=== PATIENT | female | born 1985 | race Two or more races ===

== ENCOUNTER 2020-02-26 00:41 | Inpatient (IN) | payer MEDICAID, OTHER ==
[2020-02-26] MEDS: Lactated Ringers 1,000 ML IV SCH ×2 (02:00→03:01)
[2020-02-26] MEDS ORDERED: Metoclopramide 10 MG/2 ML SDV IVPUSH ONE (02:03)
[2020-02-26] MEDS ORDERED: Sodium Chloride 0.9% 10 ML Syringe FLUSH PRN (02:03)
[2020-02-26] MEDS ORDERED: ceFAZolin 2 GM in Premix Bag 1 BAG IV ONE (02:03)
[2020-02-26] MEDS ORDERED: Citric Acid/Sodium Citrate Solution 30 ML Cup PO ONE (02:03)
[2020-02-26] MEDS ORDERED: Oxytocin/Lactated Ringers 10 UNIT/1,000 ML BAG IV SCH ×2 (02:15→10:23)
[2020-02-26] MEDS ORDERED: Azithromycin 500 MG in Sodium Chloride 0.9% 250 ML IV ONE (06:31)
[2020-02-26] MEDS ORDERED: ceFAZolin 1 GM in Premix Bag 1 BAG IV ONE (06:59)
--- NOTE | 2020-02-26 07:03 | PCM.LDHP ---
L&D History of Present Illness - General Date of Service: 02/26/20 Admit Problem/Dx: Patient Status Order with Admit Dx/Problem 02/26/20 01:15 Patient Status [ADT] Routine 02/26/20 02:03 Patient Status [ADT] Routine Admission Diagnosis/Problem Admission Diagnosis/Problem Source of Information: Patient History Limitations: Reports: No Limitations - History of Present Illness Introduction:: Basilia Tony is a 34-year-old -0-1-4 at 39 weeks 1 day (YUMIKO 03/03/2020) by LMP consistent with 30-week ultrasound who presents for evaluation of possible rupture of membranes. She reports that in the evening of 02/25/2020 around 10:30 PM she had several small gushes of fluid with continuous leaking of fluid down her leg. She denies any bleeding at that time. She had called into the hospital and they recommended that she come in for evaluation. She was not having any contractions or cramping at that time. She reports good movement. Timing/Duration: Reports: sudden onset (With several small gushes of fluid), constant/continuous (Leaking of fluid) Associated Symptoms: Reports: vaginal fluid, mild amount. Denies: vaginal bleeding, vaginal discharge Present Illness Comments:: Basilia Tony is a 34-year-old -0-1-4 at 39 weeks 1 day (YUMIKO 03/03/2020) who presents with spontaneous rupture membranes. She has had limited care and was late for care starting with her first ultrasound in September 2019. We do not have results of that ultrasound but she had a full anatomy ultrasound done when she was 30 weeks gestational age that was overall normal with limited spine views. She had several visits with her PCP for the in November and December and began care with myself for the last 4 visits starting on 01/29/2020. This has been overall uncomplicated. She has used marijuana during the to help with some of her nausea and vomiting that was occurring even towards the end of the . She states that she had stopped around the time of her first visit with myself. She has had regular visits since she established care with myself. Her is complicated by: * History of section x3 with plan for repeat section * Hepatitis C positive on initial exams * Obesity with BMI of 37.6 * Marijuana use in * Gastroesophageal reflux disease in and has been using baking soda to help with her symptoms. Patient was given a prescription for Prilosec but she did not start taking the medication * Advanced maternal age [employer] history -0-1-4 G1: 11/12/1999, gestational age 40 weeks, 7 pounds 9 ounces, male , vaginal delivery, from SIDS G2: 01/03/2005, gestational age 40 weeks, 8 pounds 13 ounces, male infant, vaginal delivery, started as twin with loss of one twin early in G3: 04/12/2007, gestational age 40 weeks, 8 pounds 0 ounces, female , primary section for breech presentation G4: 06/11/2009, gestational age 39 weeks, 8 pounds 0 ounces, male , repeat section for history of G5: 07/19/2013, 8 pounds 0 ounces, gestational age 39 weeks, female , repeat section for history of x2 G6: Current labs Blood type: O+ Antibody screen: Negative Urine culture: Negative, mixed shen suggestive of contamination Rubella status: Immune Hepatitis C: Positive Hepatitis B surface antigen: Negative RPR: Negative HIV: Negative Gonorrhea: Negative Chlamydia: Negative Anatomy ultrasound: Grossly normal anatomy ultrasound with spine views limited, 56th percentile, anterior placenta, no previa Second trimester hematocrit/hemoglobin: 36.3%/12.6 on 12/15/2019 Platelets: 289 on 12/15/2019 GBS status: Negative - Related Data Allergies/Adverse Reactions: Allergies Allergy/AdvReac Type Severity Reaction Status Date / Time No Known Allergies Allergy Verified 02/26/20 06:28 Past Medical History HEENT History: Reports: None Cardiovascular History: Reports: None Gastrointestinal History: Reports: GERD Genitourinary History: Reports: STD Other Genitourinary History: Hep C+, denies hx iv drug use [employer] History: Reports: : 6 Para: 5 Musculoskeletal History: Reports: None Neurological History: Reports: None Psychiatric History: Reports: Anxiety Endocrine/Metabolic History: Reports: Obesity/BMI 30+ Hematologic History: Reports: None Immunologic History: Reports: None Oncologic (Cancer) History: Reports: None Dermatologic History: Reports: None - Infectious Disease History Infectious Disease History: Reports: Hepatitis C, Human Papilloma Virus (HPV) - Past Surgical History Head Surgeries/Procedures: Reports: None HEENT Surgical History: Reports: None Cardiovascular Surgical History: Reports: None GI Surgical History: Reports: None Female Surgical History: Reports: Section (x3) Endocrine Surgical History: Reports: None Neurological Surgical History: Reports: None Musculoskeletal Surgical History: Reports: None Oncologic Surgical History: Reports: None Dermatological Surgical History: Reports: None Social & Family History - Family History Family Medical History: Noncontributory - Tobacco Use Smoking Status *Q: Never Smoker Second Hand Smoke Exposure: No - Tobacco Core Measures Tobacco Use/Smoking Within Last 30 Days: No Smokeless Tobacco Use in Last 30 Days: No - Caffeine Use Caffeine Use: Reports: Coffee, Soda - Alcohol Use Alcohol Use History: No - Recreational Drug Use Recreational Drug Use: Yes Drug Use in Last 12 Months: Yes Recreational Drug Type: Reports: Marijuana/Hashish Recreational Drug Last Use: 1 week ago - Living Situation & Occupation Living situation: Reports: Single, with Family H&P Review of Systems - Review of Systems: Review Of Systems: See Below General: Denies: Fever, Chills, Malaise, Weakness, Fatigue HEENT: Denies: Headaches, Rhinitis, Post Nasal Drip, Sinus Congestion, Sore Throat Pulmonary: Denies: Shortness of Breath, Wheezing, Pleuritic Chest Pain, Cough Cardiovascular: Denies: Chest Pain, Palpitations Gastrointestinal: Denies: Abdominal Pain, Constipation, Diarrhea, Nausea, Vomiting Genitourinary: Denies: Dysuria, Frequency, Burning, Pain, Urgency Skin: Reports: Rash (on the back of her hands that comes during summer) Psychiatric: Reports: Anxiety. Denies: Depression Neurological: Denies: Dizziness Hematologic/Lymphatic: Denies: Anemia L&D Exam - Exam Exam: See Below - Vital Signs Vital Signs: Last Vital Signs Temp 36.2 C 02/26/20 01:15 Pulse 74 02/26/20 01:15 Resp 15 02/26/20 01:15 BP 129/86 02/26/20 01:15 Pulse Ox 98 02/26/20 01:15 Weight: 119.748 kg - OB Specific Contraction Duration (sec): 45-60 Contraction Frequency (min): 3-4 Contraction Intensity: Mild to Moderate Movement: Active Heart Tones: Present Heart Tones per Min: 120 (+15 x 15 accelerations, no decelerations) Heart Rate (FHR) Variability: Moderate (6-25 bmp) Presentation: Vertex - Montanez Score Montanez Score Cervix Position: Posterior Montanez Score Consistency: Soft Montanez Score Effacement: >80% (80%) Montanez Score Dilation: 3-4 cm (4 cm) Montanez Score 's Station: -3 (-4) Montanez Score Total: 7 - Exam General: Alert, Oriented HEENT: Conjunctiva Clear, EOMI Neck: Supple, Trachea Midline Lungs: Clear to Auscultation, Normal Respiratory Effort Cardiovascular: Regular Rate, Regular Rhythm GI/Abdominal Exam: Soft, Non-Tender, No Distention. No: Guarding, Rigid, Rebound Genitourinary: Normal external exam Skin: Warm, Dry, Intact Psychiatric: Alert, Normal Affect, Normal Mood - Patient Data Lab Results Last 24 hrs: Laboratory Results - last 24 hr 02/26/20 02/26/20 02/26/20 Range/Units 01:26 02:25 02:25 WBC 6.45 (3.98-10.04) K/mm3 RBC 3.81 L (3.98-5.22) M/mm3 Hgb 10.3 L (11.2-15.7) gm/dl Hct 32.3 L (34.1-44.9) % MCV 84.8 (79.4-94.8) fl MCH 27.0 (25.6-32.2) pg MCHC 31.9 L (32.2-35.5) g/dl RDW Std Deviation 39.2 (36.4-46.3) fL Plt Count 269 (182-369) K/mm3 MPV 10.8 (9.4-12.3) fl Neut % (Auto) 62.3 (34.0-71.1) % Lymph % (Auto) 29.0 (19.3-51.7) % [place] % (Auto) 7.3 (4.7-12.5) % Eos % (Auto) 0.6 L (0.7-5.8) Baso % (Auto) 0.5 (0.1-1.2) % Neut # (Auto) 4.02 (1.56-6.13) K/mm3 Lymph # (Auto) 1.87 (1.18-3.74) K/mm3 [place] # (Auto) 0.47 H (0.24-0.36) K/mm3 Eos # (Auto) 0.04 (0.04-0.36) K/mm3 Baso # (Auto) 0.03 (0.01-0.08) K/mm3 Membrane Rupture Positive H Urine Opiates Screen (VNHYKQ=553) Ur Buprenorphine Scrn (CUTOFF=10) Ur Oxycodone Screen (XZH7BE=371) Urine Methadone Screen (DXUDMM=195) Ur Propoxyphene Screen (YGMEHD=308) Ur Barbiturates Screen (QJUKJI=450) Ur Tricyclics Screen (PTEGRJ=631) Ur Phencyclidine Scrn (CUTOFF=25) Ur Amphetamine Screen (QHVUNU=340) U Methamphetamines Scrn (LEGHEZ=571) U Benzodiazepines Scrn (PPZAWU=483) U Cocaine Metab Screen (MNDFRS=605) U Marijuana (THC) Screen (CUTOFF=50) SARS Virus RNA (PCR) (NEGATIVE) Blood Type O POSITIVE Gel Antibody Screen Negative 02/26/20 02/26/20 Range/Units 02:45 02:50 WBC (3.98-10.04) K/mm3 RBC (3.98-5.22) M/mm3 Hgb (11.2-15.7) gm/dl Hct (34.1-44.9) % MCV (79.4-94.8) fl MCH (25.6-32.2) pg MCHC (32.2-35.5) g/dl RDW Std Deviation (36.4-46.3) fL Plt Count (182-369) K/mm3 MPV (9.4-12.3) fl Neut % (Auto) (34.0-71.1) % Lymph % (Auto) (19.3-51.7) % [place] % (Auto) (4.7-12.5) % Eos % (Auto) (0.7-5.8) Baso % (Auto) (0.1-1.2) % Neut # (Auto) (1.56-6.13) K/mm3 Lymph # (Auto) (1.18-3.74) K/mm3 [place] # (Auto) (0.24-0.36) K/mm3 Eos # (Auto) (0.04-0.36) K/mm3 Baso # (Auto) (0.01-0.08) K/mm3 Membrane Rupture Urine Opiates Screen Negative (IRJMXP=239) Ur Buprenorphine Scrn Negative (CUTOFF=10) Ur Oxycodone Screen Negative (HQA1UT=299) Urine Methadone Screen Negative (HEEPZG=492) Ur Propoxyphene Screen Negative (WKIFUK=491) Ur Barbiturates Screen Negative (BMGWVH=764) Ur Tricyclics Screen Negative (DOZSUG=806) Ur Phencyclidine Scrn Negative (CUTOFF=25) Ur Amphetamine Screen Negative (JLKOJK=168) U Methamphetamines Scrn Negative (NZXTPD=739) U Benzodiazepines Scrn Negative (SCNZVO=760) U Cocaine Metab Screen Negative (KUYMQD=870) U Marijuana (THC) Screen Presumptive positive H (CUTOFF=50) SARS Virus RNA (PCR) Negative (NEGATIVE) Blood Type Gel Antibody Screen Result Diagrams: 02/26/20 02:25 - Problem List (1) 39 weeks gestation of SNOMED Code(s): 06663763 ICD Code: Z3A.39 - 39 WEEKS GESTATION OF Status: Acute Current Visit: Yes (2) History of delivery, currently SNOMED Code(s): 606091806, 048943917 ICD Code: O34.219 - MATERNAL CARE FOR UNSP TYPE SCAR FROM PREVIOUS DEL Status: Acute Current Visit: Yes (3) History of section SNOMED Code(s): 108907608 ICD Code: Z98.891 - HISTORY OF UTERINE SCAR FROM PREVIOUS SURGERY Status: Acute Current Visit: Yes (4) Hepatitis C SNOMED Code(s): 06712508 ICD Code: B19.20 - UNSPECIFIED VIRAL HEPATITIS C WITHOUT HEPATIC COMA Status: Acute Current Visit: Yes (5) Gastroesophageal reflux during in third trimester, antepartum SNOMED Code(s): 961306523 ICD Code: O99.613 - DISEASES OF THE DGSTV SYS COMP , THIRD TRIMESTER; K21.9 - GASTRO-ESOPHAGEAL REFLUX DISEASE WITHOUT ESOPHAGITIS Status: Acute Current Visit: Yes (6) Obesity (BMI 30-39.9) SNOMED Code(s): 429016412, 476941458 ICD Code: E66.9 - OBESITY, UNSPECIFIED Status: Acute Current Visit: Yes (7) Advanced maternal age in multigravida SNOMED Code(s): 623018241 ICD Code: O09.529 - SUPERVISION OF ELDERLY MULTIGRAVIDA, UNSPECIFIED TRIMESTER Status: Acute Current Visit: Yes Problem List Initiated/Reviewed/Updated: Yes Orders Last 24hrs: Active Orders 24 hr Category Date Time Status Patient Status [ADT] Routine ADT 02/26/20 02:03 Active Communication Order [RC] ROUTINE Care 02/26/20 02:03 Active Peripheral IV Care [RC] . DIRECTED Care 02/26/20 02:04 Active Procedure Site Prep Instruct [RC] ASDIRECTED Care 02/26/20 02:03 Active Verify Patient Consent Obtain [RC] PER UNIT ROUTINE Care 02/26/20 02:03 Active Vital Signs [RC] PFP Care 02/26/20 02:03 Active Vital Signs [RC] Q4HR Care 02/26/20 01:15 Active PATIENT RETYPE [BBK] Routine Lab 02/26/20 04:12 Ordered RAPID PLASMA REAGIN,RPR [CHEM] Routine Lab 02/26/20 02:25 Received Azithromycin [Zithromax] 500 mg Med 02/26/20 06:31 Active Sodium Chloride 0.9% [Normal Saline] 250 ml IV ONETIME Lactated Ringers [Ringers, Lactated] 1,000 ml Med 02/26/20 02:15 Active IV ASDIRECTED Oxytocin/Lactated Ringers [Pitocin in LR 10 Units/1,000 Med 02/26/20 02:15 Active ML] 10 unit in 1,000 ml IV ASDIRECTED Sodium Chloride 0.9% [Saline Flush] Med 02/26/20 02:03 Active 10 ml FLUSH ASDIRECTED PRN Peripheral IV Insertion Adult [OM.PC] Routine Oth 02/26/20 02:03 Ordered Schedule Procedure [COMM] Per Unit Routine Oth 02/26/20 02:03 Ordered Resuscitation Status Routine Resus Stat 02/26/20 01:15 Ordered Medication Orders Lactated Ringer's (Ringers, Lactated) 1,000 mls @ 125 mls/hr IV ASDIRECTED CELESTE Last Admin: 02/26/20 03:01 Dose: 125 mls/hr Documented by: Infusion: 02/26/20 03:01 Dose: 999 mls/hr Documented by: Admin: 02/26/20 02:00 Dose: 999 mls/hr Documented by: RAMON Oxytocin/Lactated Ringer's (Pitocin In Lr 10 Units/1,000 Ml) 10 unit in 1,000 mls @ 100 mls/hr IV ASDIRECTED CELESTE; Protocol Azithromycin 500 mg/ Sodium (Chloride) 250 mls @ 250 mls/hr IV ONETIME ONE Stop: 02/26/20 07:30 Sodium Chloride (Saline Flush) 10 ml FLUSH ASDIRECTED PRN PRN Reason: Keep Vein Open Assessment/Plan Comment:: Admit to inpatient after section NST prior to section Place IV and have Lactated Ringer's at 125 ml/hr SCDs for DVT prophylaxis Nothing by mouth Activity as tolerated Plan for spinal injection for anesthesia CBC, RPR and type and screen prior to surgery Plan for Ancef 3 g IV and azithromycin 500 mg IV for antibiotic prophylaxis prior to surgery Abiel Farfan M.D. 7:25 AM 02/26/2020
[2020-02-26] MEDS ORDERED: Ketorolac 30 MG/ML SDV ONE (07:13)
[2020-02-26] MEDS ORDERED: Lactated Ringers 2,000 ML ONE (07:13)
[2020-02-26] MEDS ORDERED: Oxytocin 10 Units/1 ML SDV ONE (07:13)
[2020-02-26] MEDS ORDERED: Ondansetron 4 MG/2 ML SDV ONE (07:13)
[2020-02-26] MEDS ORDERED: ceFAZolin 1 GM Vial ONE (07:13)
[2020-02-26] MEDS ORDERED: Morphine PF 1 MG/ML Amp ONE (07:13)
[2020-02-26] MEDS ORDERED: Bupivacaine 0.5% 30 ML SDV ONE (07:18)
[2020-02-26] MEDS ORDERED: Midazolam 1 MG/ML 2 ML SDV ONE (08:18)
[2020-02-26] MEDS ORDERED: Dexamethasone 4 MG/ML SDV ONE (08:28)
[2020-02-26] MEDS ORDERED: Ondansetron 4 MG/2 ML SDV IVPUSH PRN ×2 (08:40→09:05)
[2020-02-26] MEDS ORDERED: fentaNYL 100 MCG/2 ML SDV IVPUSH PRN ×2 (08:40→09:05)
[2020-02-26] MEDS ORDERED: diphenhydrAMINE 50 MG/ML SDV IVPUSH PRN ×3 (08:40→10:23)
--- NOTE | 2020-02-26 08:40 | PCM.PREANE ---
Preanesthetic Assessment - Procedure Proposed Procedure: Repeat C Section - Anesthesia/Transfusion/Family Hx Anesthesia History: Prior Anesthesia Without Reaction Family History of Anesthesia Reaction: No Transfusion History: No Prior Transfusion(s) - Review of Systems General: No Symptoms Pulmonary: No Symptoms Cardiovascular: No Symptoms Gastrointestinal: Nausea (During , non currently. ) Neurological: No Symptoms Other: Reports: Anxiety (Very anxious this morning, tearful. Support person is unable to be here at this time. ) - Physical Assessment NPO Status Date: 02/26/20 NPO Status Time: 20:30 Vital Signs: Last Vital Signs Temp 36.2 C 02/26/20 01:15 Pulse 74 02/26/20 01:15 Resp 15 02/26/20 01:15 BP 129/86 02/26/20 01:15 Pulse Ox 98 02/26/20 01:15 Height: 1.78 m Weight: 119.748 kg ASA Class: 2 Mental Status: Alert & Oriented x3 Airway Class: Mallampati = 2 Dentition: Reports: Normal Dentition Thyro-Mental Finger Breadths: 2 Mouth Opening Finger Breadths: 3 ROM/Head Extension: Full Lungs: Clear to Auscultation, Normal Respiratory Effort Cardiovascular: Regular Rate, Regular Rhythm - Lab Values: Laboratory Last Values WBC 6.45 K/mm3 (3.98-10.04) 02/26/20 02:25 RBC 3.81 M/mm3 (3.98-5.22) L 02/26/20 02:25 Hgb 10.3 gm/dl (11.2-15.7) L 02/26/20 02:25 Hct 32.3 % (34.1-44.9) L 02/26/20 02:25 MCV 84.8 fl (79.4-94.8) 02/26/20 02:25 MCH 27.0 pg (25.6-32.2) 02/26/20 02:25 MCHC 31.9 g/dl (32.2-35.5) L 02/26/20 02:25 RDW Std Deviation 39.2 fL (36.4-46.3) 02/26/20 02:25 Plt Count 269 K/mm3 (182-369) 02/26/20 02:25 MPV 10.8 fl (9.4-12.3) 02/26/20 02:25 Neut % (Auto) 62.3 % (34.0-71.1) 02/26/20 02:25 Lymph % (Auto) 29.0 % (19.3-51.7) 02/26/20 02:25 [place] % (Auto) 7.3 % (4.7-12.5) 02/26/20 02:25 Eos % (Auto) 0.6 (0.7-5.8) L 02/26/20 02:25 Baso % (Auto) 0.5 % (0.1-1.2) 02/26/20 02:25 Neut # (Auto) 4.02 K/mm3 (1.56-6.13) 02/26/20 02:25 Lymph # (Auto) 1.87 K/mm3 (1.18-3.74) 02/26/20 02:25 [place] # (Auto) 0.47 K/mm3 (0.24-0.36) H 02/26/20 02:25 Eos # (Auto) 0.04 K/mm3 (0.04-0.36) 02/26/20 02:25 Baso # (Auto) 0.03 K/mm3 (0.01-0.08) 02/26/20 02:25 Membrane Rupture Positive H 02/26/20 01:26 Urine Opiates Screen Negative (GUNWFA=601) 02/26/20 02:45 Ur Buprenorphine Scrn Negative (CUTOFF=10) 02/26/20 02:45 Ur Oxycodone Screen Negative (YGJ1SB=655) 02/26/20 02:45 Urine Methadone Screen Negative (XHIHXM=894) 02/26/20 02:45 Ur Propoxyphene Screen Negative (WHRQET=555) 02/26/20 02:45 Ur Barbiturates Screen Negative (ETZCMI=891) 02/26/20 02:45 Ur Tricyclics Screen Negative (ZBXRGK=005) 02/26/20 02:45 Ur Phencyclidine Scrn Negative (CUTOFF=25) 02/26/20 02:45 Ur Amphetamine Screen Negative (PRQYHK=308) 02/26/20 02:45 U Methamphetamines Scrn Negative (NBOZLX=983) 02/26/20 02:45 U Benzodiazepines Scrn Negative (KRAIAM=216) 02/26/20 02:45 U Cocaine Metab Screen Negative (BIPBAN=049) 02/26/20 02:45 U Marijuana (THC) Screen Presumptive positive (CUTOFF=50) H 02/26/20 02:45 SARS Virus RNA (PCR) Negative (NEGATIVE) 02/26/20 02:50 Blood Type O POSITIVE 02/26/20 02:25 Gel Antibody Screen Negative 02/26/20 02:25 - Allergies Allergies/Adverse Reactions: Allergies Allergy/AdvReac Type Severity Reaction Status Date / Time No Known Allergies Allergy Verified 02/26/20 06:28 - Anesthesia Plan Pre-Op Medication Ordered: Anxiolytic (Requesting anxiolytic once delivery is complete) - Acknowledgements Anesthesia Type Planned: Spinal Pt an Appropriate Candidate for the Planned Anesthesia: Yes Alternatives and Risks of Anesthesia Discussed w Pt/Guardian: Yes Pt/Guardian Understands and Agrees with Anesthesia Plan: Yes PreAnesthesia Questionnaire HEENT History: Reports: None Cardiovascular History: Reports: None Gastrointestinal History: Reports: GERD Genitourinary History: Reports: STD Other Genitourinary History: Hep C+, denies hx iv drug use [employer]ICIAN History: Reports: Musculoskeletal History: Reports: None Neurological History: Reports: None Psychiatric History: Reports: Anxiety Endocrine/Metabolic History: Reports: Obesity/BMI 30+ Hematologic History: Reports: None Immunologic History: Reports: None Oncologic (Cancer) History: Reports: None Dermatologic History: Reports: None - Infectious Disease History Infectious Disease History: Reports: Hepatitis C, Human Papilloma Virus (HPV) - Past Surgical History Head Surgeries/Procedures: Reports: None HEENT Surgical History: Reports: None Cardiovascular Surgical History: Reports: None GI Surgical History: Reports: None Female Surgical History: Reports: Section (x3) Endocrine Surgical History: Reports: None Neurological Surgical History: Reports: None Musculoskeletal Surgical History: Reports: None Oncologic Surgical History: Reports: None Dermatological Surgical History: Reports: None - SUBSTANCE USE Smoking Status *Q: Never Smoker Second Hand Smoke Exposure: No Recreational Drug Use History: Yes Recreational Drug Type: Reports: Marijuana/Hashish Recreational Drug Last Use: 1 week ago - CURRENT (IN HOUSE) MEDS Current Meds: Current Medications Lactated Ringer's (Ringers, Lactated) 1,000 mls @ 125 mls/hr IV ASDIRECTED CELESTE Last Admin: 02/26/20 03:01 Dose: 125 mls/hr Documented by: Oxytocin/Lactated Ringer's (Pitocin In Lr 10 Units/1,000 Ml) 10 unit in 1,000 mls @ 100 mls/hr IV ASDIRECTED CELESTE; Protocol Sodium Chloride (Saline Flush) 10 ml FLUSH ASDIRECTED PRN PRN Reason: Keep Vein Open Discontinued Medications Bupivacaine HCl (Marcaine 0.5%) Confirm Administered Dose 30 ml .ROUTE .STK-MED ONE Stop: 02/26/20 07:19 Cefazolin Sodium (Ancef) Confirm Administered Dose 2 gm .ROUTE .STK-MED ONE Stop: 02/26/20 07:14 Citric Acid/Sodium Citrate (Bicitra Solution) 30 ml PO ONETIME ONE Stop: 02/26/20 02:04 Last Admin: 02/26/20 07:21 Dose: 30 ml Documented by: Dexamethasone (Dexamethasone) Confirm Administered Dose 4 mg .ROUTE .STK-MED ONE Stop: 02/26/20 08:29 Cefazolin Sodium/Dextrose 2 gm (/ Premix) 50 mls @ 100 mls/hr IV ONETIME ONE Stop: 02/26/20 02:32 Azithromycin 500 mg/ Sodium (Chloride) 250 mls @ 250 mls/hr IV ONETIME ONE Stop: 02/26/20 07:30 Last Admin: 02/26/20 07:27 Dose: 250 mls/hr Documented by: Cefazolin Sodium/Dextrose 1 gm (/ Premix) 50 mls @ 100 mls/hr IV ONETIME ONE Stop: 02/26/20 07:28 Lactated Ringer's (Ringers, Lactated) Confirm Administered Dose 2,000 mls @ as directed .ROUTE .STK-MED ONE Stop: 02/26/20 07:14 Ketorolac Tromethamine (Toradol) Confirm Administered Dose 30 mg .ROUTE .STK-MED ONE Stop: 02/26/20 07:14 Metoclopramide HCl (Reglan) 10 mg IVPUSH ONETIME ONE Stop: 02/26/20 02:04 Last Admin: 02/26/20 07:22 Dose: 10 mg Documented by: Midazolam HCl (Versed 1 Mg/Ml) Confirm Administered Dose 2 mg .ROUTE .STK-MED ONE Stop: 02/26/20 08:19 Morphine Sulfate (Duramorph Pf) Confirm Administered Dose 1 mg .ROUTE .STK-MED ONE Stop: 02/26/20 07:14 Ondansetron HCl (Zofran) Confirm Administered Dose 4 mg .ROUTE .STK-MED ONE Stop: 02/26/20 07:14 Oxytocin (Pitocin) Confirm Administered Dose 20 unit .ROUTE .STK-MED ONE Stop: 02/26/20 07:14
[2020-02-26] MEDS ORDERED: ePHEDrine Sulfate/0.9% NaCl/Pf 25 MG/5 ML SYRINGE IV ONE (08:51)
--- NOTE | 2020-02-26 09:03 | PCM.POSTAN ---
POST ANESTHESIA ASSESSMENT - MENTAL STATUS Mental Status: Alert, Oriented - VITAL SIGNS Vital Signs: Last Vital Signs Temp 36.2 C 02/26/20 01:15 Pulse 74 02/26/20 01:15 Resp 15 02/26/20 01:15 BP 129/86 02/26/20 01:15 Pulse Ox 98 02/26/20 01:15 0854 92/56 60 14 98% 97.6F - RESPIRATORY Respiratory Status: Respiratory Rate WNL, Airway Patent, O2 Saturation Stable - CARDIOVASCULAR CV Status: Pulse Rate WNL, Blood Pressure Stable - GASTROINTESTINAL GI Status: No Symptoms - PAIN Pain Score: 0 - POST OP HYDRATION Hydration Status: Adequate & Stable
--- NOTE | 2020-02-26 09:15 | PCM.OPNOTE ---
- General Post-Op/Procedure Note Date of Surgery/Procedure: 02/26/20 Operative Procedure(s): Repeat section Findings: Live male delivered using mushroom cup vacuum extractor at 08:13. Apgars of 9 and 9. weight 3580 g (7 pounds 14.3 ounces). Grossly normal- appearing uterus, bilateral fallopian tubes and ovaries. Pre Op Diagnosis: 39 weeks gestational age, history of section x3, hepatitis C and a spontaneous rupture membranes Post-Op Diagnosis: Same Anesthesia Technique: Spinal Primary Surgeon: Abiel Farfan Anesthesia Provider: Ilda Snider Grief Counsellor: Jose Perkins Grief Counsellor: Jane Vinson ([place] student) Reason Grief Counsellor Was Necessary: Patient safety and reduction of morbidity and mortality Role of Grief Counsellor: Retraction and assistance with delivery of the with expertise for delivery Pathology: None Fluid Replacement, Intraop: 1,800 Output, Urine Amount: 50 EBL in mLs: 600 Complications: None Condition: Good Free Text/Narrative:: Intake & Output 02/25/20 02/26/20 02/26/20 22:59 06:59 14:59 Intake Total 2250 Balance 2250 Length of procedure: 47 minutes Procedure in Detail: The patient was seen on labor and delivery in room #1 after she was determined to have had spontaneous rupture membranes with clear fluid. The risks, benefits and complications of a repeat section were discussed with the patient. The patient desired to proceed with section and appropriate consents were signed. The patient was taken to operating room #1. A Time Out was held and the patient was identified using 2 identifiers and the procedure was confirmed. The patient was given spinal anesthesia and was placed in dorsal supine position with leftward tilt. She was given 3 g Ancef IV and azithromycin 5 mg IV for antibiotic prophylaxis secondary to spontaneous rupture of membranes. A Traxi panniculus retractor was used to retract the panniculus for visualization of the previous Pfannenstiel incision. A Dowd catheter was placed to drain the bladder. The patient was prepped and draped in the usual sterile manner. The abdominal skin was tested and the spinal anesthesia was found to be adequate. The skin was injected with 0.5% marcaine for local anesthesia. A Pfannenstiel skin incision was made and carried down through the subcutaneous tissue to the fascia with the scapel. The fascia was nicked in the midline using a scalpel and the fascial incision was extended transversely with Zarate scissors. The inferior aspect of the fascia was grasped with Arianna clamps and tented upwards. The fascia was from the underlying rectus muscle bluntly and sharply with Zarate scissors. Attention was then turned to the superior aspect of the fascia and was grasped using Arianna clamps and tented upwards. The underlying rectus muscle was dissected off bluntly and sharply with Zarate scissors. The peritoneum was identified and entered bluntly. The utero-vesical peritoneal reflection was identified and the peritoneum was incised with Metzenabaum scissors and transversely extended. The bladder blade was inserted and the lower uterine segment was identified. A low transverse uterine incision was made sharply with a scalpel and extended laterally bluntly. The 's head was brought to the uterine incision, the bladder blade was removed and the was attempted to be delivered manually. The head was not able to be delivered and a vacuum extractor was applied to the 's head and suction was applied to 500 mmHg. First attempt was made with a berg type vacuum extractor but 1 pop off occurred. A mushroom cup vacuum extractor was then used and placed on the 's head and suction was applied to 500 mmHg. There was 1 additional pop off with the mushroom cup vacuum extractor. The vacuum extractor was reapplied to the head and with abdominal pressure the was able to be delivered using a mushroom cup vacuum extractor. On 02/26/2020 a live male infant was delivered in vertex position at 08:13, wt of 3580 grams, 7 pounds and 14.3 ounces. APGARS were 9 & 9. The nose and mouth were suctioned with bulb suction, the cord was doubly clamped and cut and infant was transferred to the awaiting boarding house manager, Dr. Grayson. The placenta was removed intact and appeared normal with a three vessel cord. The uterus was exteriorized and the uterine cavity was cleaned using lap sponges. The hysterotomy was closed with a running locked suture of 0 Monocryl. A second suture of 0 Monocryl was used to imbricate the hysterotomy. The hysterotomy was hemostatic. The uterus, tubes and ovaries appeared overall normal. The uterus was then returned into the abdominal cavity. The hysterotomy was noted to remain hemostatic inside the abdominal cavity. The fascia was noted to be hemostatic and the fascia was then reapproximated with running sutures of 0 Monocryl. The subcutaneous fat was reapproximated using 0 Monocryl. The skin was reapproximated using 4-0 Monocryl and a Prineo dressing system was applied over the incision. Instrument, sponge, and needle counts were correct prior to the abdominal closure and at the conclusion of the case.
[2020-02-26] MEDS ORDERED: Naloxone 0.4 MG/ML SDV IVPUSH PRN (10:23)
[2020-02-26] MEDS ORDERED: Ondansetron 4 MG/2 ML SDV IV PRN (10:23)
[2020-02-26] MEDS ORDERED: ePHEDrine 50 MG/ML SDV IVPUSH PRN (10:23)
[2020-02-26] MEDS ORDERED: Acetaminophen/oxyCODONE 325-5 MG Tab PO PRN (10:23)
[2020-02-26] MEDS ORDERED: Dextrose 5%-Lactated Ringers 1,000 ML IV SCH (10:23)
[2020-02-26] MEDS ORDERED: Magnesium Hydroxide 400 MG/5 ML Susp 30 ML Cup PO PRN (10:23)
[2020-02-26] MEDS: Ketorolac 30 MG/ML SDV IVPUSH SCH ×2 (15:34→21:03)
[2020-02-26] MEDS: Prenatal Multivitamin with Calcium/Folic Acid/Iron Tab PO SCH (15:34)
[2020-02-26] MEDS ORDERED: Lactated Ringers 500 ML IV ONE (17:34)
[2020-02-27] MEDS: Docusate Sodium 100 MG Cap PO SCH ×2 (00:18→10:00)
[2020-02-27] MEDS: Acetaminophen/oxyCODONE 325-5 MG Tab PO PRN ×4 (00:24→21:13)
[2020-02-27] MEDS: Ketorolac 30 MG/ML SDV IVPUSH SCH (04:58)
--- NOTE | 2020-02-27 08:06 | PCM48HPAN ---
Post Anesthesia Note - EVALUATION WITHIN 48HRS OF ANESTHETIC Vital Signs in Normal Range: Yes Patient Participated in Evaluation: Yes Respiratory Function Stable: Yes Airway Patent: Yes Cardiovascular Function Stable: Yes Hydration Status Stable: Yes Pain Control Satisfactory: Yes Nausea and Vomiting Control Satisfactory: Yes Mental Status Recovered: Yes Vital Signs: Last Vital Signs Temp 36.6 C 02/27/20 03:59 Pulse 50 L 02/27/20 03:59 Resp 16 02/27/20 03:59 BP 120/69 02/27/20 03:59 Pulse Ox 100 02/27/20 06:00
--- NOTE | 2020-02-27 09:32 | PCM.SN.2 ---
- Free Text/Narrative Note: Post Operative Progress Note POD #1 Subjective: Doing well overall. Ambulating without difficulty but moving somewhat slowly. Lochia minimal. Dowd draining clear urine prior to removal this morning. Has not urinated since the Dowd catheter was removed around 5:30 AM. Not passing flatus at this time. Tolerating regular diet without nausea or vomiting. Pain controlled with oral medications. Breast and bottlefeeding with some difficulty with poor sucking effort by the even using the bottle. Objective: Vitals: Vital Signs - 24 hr 02/26/20 02/26/20 02/26/20 09:54 10:35 11:09 Temperature 36.3 C 36.1 C 36.3 C Temperature [ Oral] Temperature [ Temporal] Pulse, 58 L 56 L 54 L Peripheral Pulse, Peripheral [ Pulse Oximetry] Respiratory 15 16 13 Rate Blood Pressure 127/81 136/46 L 139/72 Blood Pressure [Left Upper Arm ] O2 Sat by Pulse 100 99 100 Oximetry 02/26/20 02/26/20 02/26/20 12:03 13:00 14:12 Temperature 35.9 C L 35.7 C L Temperature [ Oral] Temperature [ 35.7 C L Temporal] Pulse, 71 58 L Peripheral Pulse, Peripheral [ Pulse Oximetry] Respiratory 16 16 Rate Blood Pressure 147/81 H 132/72 Blood Pressure [Left Upper Arm ] O2 Sat by Pulse 99 99 100 Oximetry 02/26/20 20:00 Temperature Temperature [ 36.5 C Oral] Temperature [ Temporal] Pulse, Peripheral Pulse, 78 Peripheral [ Pulse Oximetry] Respiratory 16 Rate Blood Pressure Blood Pressure 141/85 H [Left Upper Arm ] O2 Sat by Pulse 100 Oximetry 02/27/20 03:59 Temperature 36.6 C Temperature [ Oral] Temperature [ Temporal] Pulse, 50 L Peripheral Pulse, Peripheral [ Pulse Oximetry] Respiratory 16 Rate Blood Pressure 120/69 Blood Pressure [Left Upper Arm ] O2 Sat by Pulse 99 Oximetry Physical Exam General: Alert and oriented, no acute distress Lungs: Clear to auscultation bilaterally Heart: Regular rate and rhythm Abdomen: Soft, minimal appropriate tenderness, non-distended, fundus midline, nontender and at the umbilicus Incision: Clean, dry and intact, no erythema, bleeding or drainage with Prineo dressing in place Extremities: Trace edema in bilateral lower extremities to mid shins Labs: Laboratory Tests 02/26/20 02/26/20 02/26/20 Range/Units 01:26 02:25 02:25 WBC (3.98-10.04) K/mm3 RBC (3.98-5.22) M/mm3 Hgb (11.2-15.7) gm/dl Hct (34.1-44.9) % MCV (79.4-94.8) fl MCH (25.6-32.2) pg MCHC (32.2-35.5) g/dl RDW Std Deviation (36.4-46.3) fL Plt Count (182-369) K/mm3 MPV (9.4-12.3) fl Neut % (Auto) (34.0-71.1) % Lymph % (Auto) (19.3-51.7) % Emery % (Auto) (4.7-12.5) % Eos % (Auto) (0.7-5.8) Baso % (Auto) (0.1-1.2) % Neut # (Auto) (1.56-6.13) K/mm3 Lymph # (Auto) (1.18-3.74) K/mm3 Emery # (Auto) (0.24-0.36) K/mm3 Eos # (Auto) (0.04-0.36) K/mm3 Baso # (Auto) (0.01-0.08) K/mm3 Manual Slide Review Membrane Rupture Positive H Urine Opiates Screen (OIROBK=302) Ur Buprenorphine Scrn (CUTOFF=10) Ur Oxycodone Screen (YWH2NH=054) Urine Methadone Screen (QWQPFI=695) Ur Propoxyphene Screen (EKWJUB=294) Ur Barbiturates Screen (TKCEKZ=544) Ur Tricyclics Screen (YFSUYV=097) Ur Phencyclidine Scrn (CUTOFF=25) Ur Amphetamine Screen (BUFHJJ=071) U Methamphetamines Scrn (KJSZZU=119) U Benzodiazepines Scrn (VYMZVR=343) U Cocaine Metab Screen (IZJRZS=425) U Marijuana (THC) Screen (CUTOFF=50) RPR Non-reactive (NONREACTIVE) SARS Virus RNA (PCR) (NEGATIVE) Blood Type O POSITIVE Gel Antibody Screen Negative 02/26/20 02/26/20 02/26/20 Range/Units 02:25 02:45 02:50 WBC 6.45 (3.98-10.04) K/mm3 RBC 3.81 L (3.98-5.22) M/mm3 Hgb 10.3 L (11.2-15.7) gm/dl Hct 32.3 L (34.1-44.9) % MCV 84.8 (79.4-94.8) fl MCH 27.0 (25.6-32.2) pg MCHC 31.9 L (32.2-35.5) g/dl RDW Std Deviation 39.2 (36.4-46.3) fL Plt Count 269 (182-369) K/mm3 MPV 10.8 (9.4-12.3) fl Neut % (Auto) 62.3 (34.0-71.1) % Lymph % (Auto) 29.0 (19.3-51.7) % Emery % (Auto) 7.3 (4.7-12.5) % Eos % (Auto) 0.6 L (0.7-5.8) Baso % (Auto) 0.5 (0.1-1.2) % Neut # (Auto) 4.02 (1.56-6.13) K/mm3 Lymph # (Auto) 1.87 (1.18-3.74) K/mm3 Emery # (Auto) 0.47 H (0.24-0.36) K/mm3 Eos # (Auto) 0.04 (0.04-0.36) K/mm3 Baso # (Auto) 0.03 (0.01-0.08) K/mm3 Manual Slide Review Membrane Rupture Urine Opiates Screen Negative (HLNYPL=182) Ur Buprenorphine Scrn Negative (CUTOFF=10) Ur Oxycodone Screen Negative (IJF3TM=547) Urine Methadone Screen Negative (JOCTGU=016) Ur Propoxyphene Screen Negative (SGFWUN=630) Ur Barbiturates Screen Negative (ZXAISS=993) Ur Tricyclics Screen Negative (EOSNER=087) Ur Phencyclidine Scrn Negative (CUTOFF=25) Ur Amphetamine Screen Negative (PULUSF=761) U Methamphetamines Scrn Negative (TZFJVV=649) U Benzodiazepines Scrn Negative (BTXTZA=826) U Cocaine Metab Screen Negative (TQJVBQ=656) U Marijuana (THC) Screen Presumptive positive H (CUTOFF=50) RPR (NONREACTIVE) SARS Virus RNA (PCR) Negative (NEGATIVE) Blood Type Gel Antibody Screen 02/26/20 02/27/20 Range/Units 15:00 04:47 WBC 13.75 H 10.86 H (3.98-10.04) K/mm3 RBC 3.81 L 3.49 L (3.98-5.22) M/mm3 Hgb 10.3 L 9.4 L (11.2-15.7) gm/dl Hct 32.0 L 29.7 L (34.1-44.9) % MCV 84.0 85.1 (79.4-94.8) fl MCH 27.0 26.9 (25.6-32.2) pg MCHC 32.2 31.6 L (32.2-35.5) g/dl RDW Std Deviation 38.8 39.0 (36.4-46.3) fL Plt Count 259 237 (182-369) K/mm3 MPV 10.7 10.8 (9.4-12.3) fl Neut % (Auto) 91.4 H 74.9 H (34.0-71.1) % Lymph % (Auto) 5.1 L 19.5 (19.3-51.7) % Emery % (Auto) 3.3 L 4.5 L (4.7-12.5) % Eos % (Auto) 0 L 0.6 L (0.7-5.8) Baso % (Auto) 0.1 0.3 (0.1-1.2) % Neut # (Auto) 12.55 H 8.13 H (1.56-6.13) K/mm3 Lymph # (Auto) 0.70 L 2.12 (1.18-3.74) K/mm3 Emery # (Auto) 0.46 H 0.49 H (0.24-0.36) K/mm3 Eos # (Auto) 0.00 L 0.07 (0.04-0.36) K/mm3 Baso # (Auto) 0.02 0.03 (0.01-0.08) K/mm3 Manual Slide Review Abnormal smear Membrane Rupture Urine Opiates Screen (WPWTDW=937) Ur Buprenorphine Scrn (CUTOFF=10) Ur Oxycodone Screen (NON5CF=574) Urine Methadone Screen (TBZRTY=437) Ur Propoxyphene Screen (KMCBRH=994) Ur Barbiturates Screen (RFXFDH=031) Ur Tricyclics Screen (ZJCRWI=663) Ur Phencyclidine Scrn (CUTOFF=25) Ur Amphetamine Screen (IUHKVE=817) U Methamphetamines Scrn (OXUOQX=079) U Benzodiazepines Scrn (ZJNFUY=288) U Cocaine Metab Screen (QQXTDT=521) U Marijuana (THC) Screen (CUTOFF=50) RPR (NONREACTIVE) SARS Virus RNA (PCR) (NEGATIVE) Blood Type Gel Antibody Screen ASSESSMENT: 34-year-old female -0-1-5 s/p repeat section POD ##1 for history of section, complicated by hepatitis C positive, obesity, marijuana use in , advanced maternal age and gastroesophageal reflux disease PLAN: Doing well Breast and bottlefeeding with some difficulty of feeding effort with the bottle. Assist as needed Incision healing well. Continue to keep clean and dry. Lochia minimal. Continue to monitor for appropriate lochia. Continue routine post-operative care Continue to monitor patient's urine output to ensure that she has good urine output at this time Anticipate discharge home tomorrow Abiel Farfan MD 9:29 AM 02/27/2020
[2020-02-27] MEDS: Prenatal Multivitamin with Calcium/Folic Acid/Iron Tab PO SCH (10:00)
[2020-02-27] MEDS: Pantoprazole 40 MG Tab.CR PO SCH (15:02)
[2020-02-27] MEDS: Ibuprofen 600 MG Tab PO PRN (19:57)
[2020-02-28] MEDS: Acetaminophen/oxyCODONE 325-5 MG Tab PO PRN ×2 (03:13→07:43)
[2020-02-28] MEDS: Docusate Sodium 100 MG Cap PO SCH ×2 (03:16→08:58)
[2020-02-28] MEDS: Ibuprofen 600 MG Tab PO PRN (06:46)
[2020-02-28] MEDS: Pantoprazole 40 MG Tab.CR PO SCH (07:43)
--- NOTE | 2020-02-28 08:54 | PCM.SN.2 ---
- Free Text/Narrative Note: Post Operative Progress Note POD #2 Subjective: Doing well overall. Ambulating without difficulty but moving somewhat slowly. Lochia minimal. Voiding without difficulty. Passing flatus. Tolerating regular diet without nausea or vomiting. Pain controlled with oral medications. Breast and bottlefeeding with some difficulty with poor milk production from the right breast at this time. Objective: Vitals: Vital Signs - 24 hr 02/27/20 02/27/20 02/27/20 10:20 14:56 20:05 Temperature 36.3 C 36.3 C Pulse, 62 66 Peripheral Respiratory 16 15 Rate Blood Pressure 138/87 118/67 154/90 H Blood Pressure [Left Upper Arm ] O2 Sat by Pulse 100 99 Oximetry 02/27/20 02/27/20 02/28/20 22:26 22:30 03:22 Temperature 36.8 C 36.4 C Pulse, 58 L 66 Peripheral Respiratory 16 16 Rate Blood Pressure Blood Pressure 140/89 [Left Upper Arm ] O2 Sat by Pulse 99 98 Oximetry 02/28/20 02/28/20 03:30 07:32 Temperature 36.6 C Pulse, 66 Peripheral Respiratory Rate Blood Pressure 140/88 Blood Pressure 150/90 H [Left Upper Arm ] O2 Sat by Pulse 98 Oximetry Physical Exam General: Alert and oriented, no acute distress Lungs: Clear to auscultation bilaterally Heart: Regular rate and rhythm Abdomen: Soft, minimal appropriate tenderness, non-distended, fundus midline, nontender and at the umbilicus Incision: Clean, dry and intact, no erythema, bleeding or drainage with Prineo dressing in place Extremities: Trace edema in bilateral lower extremities to mid shins ASSESSMENT: 34-year-old female -0-1-5 s/p repeat section with vacuum assistance for delivery of infant POD #2 for history of section, complicated by hepatitis C positive, obesity, marijuana use in , advanced maternal age and gastroesophageal reflux disease PLAN: Doing well Breast and bottlefeeding with some difficulty with low milk production from the right breast. Assist as needed Incision healing well. Continue to keep clean and dry. Lochia minimal. Continue to monitor for appropriate lochia. Continue routine post-operative care Patient with several mild range blood pressures but no evidence of severe features of preeclampsia. No concerns at this time. Discharge home today Abiel Farfan MD 8:51 AM 02/28/2020
[2020-02-28] MEDS: Prenatal Multivitamin with Calcium/Folic Acid/Iron Tab PO SCH (08:58)
--- NOTE | 2020-02-28 08:58 | PCM.DCSUM1 ---
Discharge Summary - Hospital Course Free Text/Narrative:: Procedure in Detail: The patient was seen on labor and delivery in room #1 after she was determined to have had spontaneous rupture membranes with clear fluid. The risks, benefits and complications of a repeat section were discussed with the patient. The patient desired to proceed with section and appropriate consents were signed. The patient was taken to operating room #1. A Time Out was held and the patient was identified using 2 identifiers and the procedure was confirmed. The patient was given spinal anesthesia and was placed in dorsal supine position with leftward tilt. She was given 3 g Ancef IV and azithromycin 5 mg IV for antibiotic prophylaxis secondary to spontaneous rupture of membranes. A Traxi panniculus retractor was used to retract the panniculus for visualization of the previous Pfannenstiel incision. A Dowd catheter was placed to drain the bladder. The patient was prepped and draped in the usual sterile manner. The abdominal skin was tested and the spinal anesthesia was found to be adequate. The skin was injected with 0.5% marcaine for local anesthesia. A Pfannenstiel skin incision was made and carried down through the subcutaneous tissue to the fascia with the scapel. The fascia was nicked in the midline using a scalpel and the fascial incision was extended transversely with Zarate scissors. The inferior aspect of the fascia was grasped with Arianna clamps and tented upwards. The fascia was from the underlying rectus muscle bluntly and sharply with Zarate scissors. Attention was then turned to the superior aspect of the fascia and was grasped using Arianna clamps and tented upwards. The underlying rectus muscle was dissected off bluntly and sharply with Zarate scissors. The peritoneum was identified and entered bluntly. The utero-vesical peritoneal reflection was identified and the peritoneum was incised with Metzenabaum scissors and transversely extended. The bladder blade was inserted and the lower uterine segment was identified. A low transverse uterine incision was made sharply with a scalpel and extended laterally bluntly. The 's head was brought to the uterine incision, the bladder blade was removed and the was attempted to be delivered manually. The head was not able to be delivered and a vacuum extractor was applied to the 's head and suction was applied to 500 mmHg. First attempt was made with a berg type vacuum extractor but 1 pop off occurred. A mushroom cup vacuum extractor was then used and placed on the 's head and suction was applied to 500 mmHg. There was 1 additional pop off with the mushroom cup vacuum extractor. The vacuum extractor was reapplied to the head and with abdominal pressure the was able to be delivered using a mushroom cup vacuum extractor. On 02/26/2020 a live male was delivered in vertex position at 08:13, wt of 3580 grams, 7 pounds and 14.3 ounces. APGARS were 9 & 9. The nose and mouth were suctioned with bulb suction, the cord was doubly clamped and cut and infant was transferred to the awaiting confidential secretary, Dr. Grayson. The placenta was removed intact and appeared normal with a three vessel cord. The uterus was exteriorized and the uterine cavity was cleaned using lap sponges. The hysterotomy was closed with a running locked suture of 0 Monocryl. A second suture of 0 Monocryl was used to imbricate the hysterotomy. The hysterotomy was hemostatic. The uterus, tubes and ovaries appeared overall normal. The uterus was then returned into the abdominal cavity. The hysterotomy was noted to remain hemostatic inside the abdominal cavity. The fascia was noted to be hemostatic and the fascia was then reapproximated with running sutures of 0 Monocryl. The subcutaneous fat was reapproximated using 0 Monocryl. The skin was reapproximated using 4-0 Monocryl and a Prineo dressing system was applied over the incision. Instrument, sponge, and needle counts were correct prior to the abdominal closure and at the conclusion of the case. HPI Initial Comments: Procedure in Detail: The patient was seen on labor and delivery in room #1 after she was determined to have had spontaneous rupture membranes with clear fluid. The risks, benefits and complications of a repeat section were discussed with the patient. The patient desired to proceed with section and appropriate consents were signed. The patient was taken to operating room #1. A Time Out was held and the patient was identified using 2 identifiers and the procedure was confirmed. The patient was given spinal anesthesia and was placed in dorsal supine position with leftward tilt. She was given 3 g Ancef IV and azithromycin 5 mg IV for antibiotic prophylaxis secondary to spontaneous rupture of membranes. A Traxi panniculus retractor was used to retract the panniculus for visualization of the previous Pfannenstiel incision. A Dowd catheter was placed to drain the bladder. The patient was prepped and draped in the usual sterile manner. The abdominal skin was tested and the spinal anesthesia was found to be adequate. The skin was injected with 0.5% marcaine for local anesthesia. A Pfannenstiel skin incision was made and carried down through the subcutaneous tissue to the fascia with the scapel. The fascia was nicked in the midline using a scalpel and the fascial incision was extended transversely with Zarate scissors. The inferior aspect of the fascia was grasped with Arianna clamps and tented upwards. The fascia was from the underlying rectus muscle bluntly and sharply with Zarate scissors. Attention was then turned to the superior aspect of the fascia and was grasped using Arianna clamps and tented upwards. The underlying rectus muscle was dissected off bluntly and sharply with Zarate scissors. The peritoneum was identified and entered bluntly. The utero-vesical peritoneal reflection was identified and the peritoneum was incised with Metzenabaum scissors and transversely extended. The bladder blade was inserted and the lower uterine segment was identified. A low transverse uterine incision was made sharply with a scalpel and extended laterally bluntly. The 's head was brought to the uterine incision, the bladder blade was removed and the was attempted to be delivered manually. The head was not able to be delivered and a vacuum extractor was applied to the infant's head and suction was applied to 500 mmHg. First attempt was made with a berg type vacuum extractor but 1 pop off occurred. A mushroom cup vacuum extractor was then used and placed on the infant's head and suction was applied to 500 mmHg. There was 1 additional pop off with the mushroom cup vacuum extractor. The vacuum extractor was reapplied to the head and with abdominal pressure the infant was able to be delivered using a mushroom cup vacuum extractor. On 02/26/2020 a live male was delivered in vertex position at 08:13, wt of 3580 grams, 7 pounds and 14.3 ounces. APGARS were 9 & 9. The nose and mouth were suctioned with bulb suction, the cord was doubly clamped and cut and was transferred to the awaiting confidential secretary, Dr. Grayson. The placenta was removed intact and appeared normal with a three vessel cord. The uterus was exteriorized and the uterine cavity was cleaned using lap sponges. The hysterotomy was closed with a running locked suture of 0 Monocryl. A second suture of 0 Monocryl was used to imbricate the hysterotomy. The hysterotomy was hemostatic. The uterus, tubes and ovaries appeared overall normal. The uterus was then returned into the abdominal cavity. The hysterotomy was noted to remain hemostatic inside the abdominal cavity. The fascia was noted to be hemostatic and the fascia was then reapproximated with running sutures of 0 Monocryl. The subcutaneous fat was reapproximated using 0 Monocryl. The skin was reapproximated using 4-0 Monocryl and a Prineo dressing system was applied over the incision. Instrument, sponge, and needle counts were correct prior to the abdominal closure and at the conclusion of the case. Brief History: Procedure in Detail: The patient was seen on labor and delivery in room #1 after she was determined to have had spontaneous rupture membranes with clear fluid. The risks, benefits and complications of a repeat section were discussed with the patient. The patient desired to proceed with section and appropriate consents were signed. The patient was taken to operating room #1. A Time Out was held and the patient was identified using 2 identifiers and the procedure was confirmed. The patient was given spinal anesthesia and was placed in dorsal supine position with leftward tilt. She was given 3 g Ancef IV and azithromycin 5 mg IV for antibiotic prophylaxis secondary to spontaneous rupture of membranes. A Traxi panniculus retractor was used to retract the panniculus for visualization of the previous Pfannenstiel incision. A Dowd catheter was placed to drain the bladder. The patient was prepped and draped in the usual sterile manner. The abdominal skin was tested and the spinal anesthesia was found to be adequate. The skin was injected with 0.5% marcaine for local anesthesia. A Pfannenstiel skin incision was made and carried down through the subcutaneous tissue to the fascia with the scapel. The fascia was nicked in the midline using a scalpel and the fascial incision was extended transversely with Zarate scissors. The inferior aspect of the fascia was grasped with Arianna clamps and tented upwards. The fascia was from the underlying rectus muscle bluntly and sharply with Zarate scissors. Attention was then turned to the superior aspect of the fascia and was grasped using Arianna clamps and tented upwards. The underlying rectus muscle was dissected off bluntly and sharply with Zarate scissors. The peritoneum was identified and entered bluntly. The utero-vesical peritoneal reflection was identified and the peritoneum was incised with Metzenabaum scissors and transversely extended. The bladder blade was inserted and the lower uterine segment was identified. A low transverse uterine incision was made sharply with a scalpel and extended laterally bluntly. The infant's head was brought to the uterine incision, the bladder blade was removed and the was attempted to be delivered manually. The head was not able to be delivered and a vacuum extractor was applied to the 's head and suction was applied to 500 mmHg. First attempt was made with a berg type vacuum extractor but 1 pop off occurred. A mushroom cup vacuum extractor was then used and placed on the 's head and suction was applied to 500 mmHg. There was 1 additional pop off with the mushroom cup vacuum extractor. The vacuum extractor was reapplied to the head and with abdominal pressure the infant was able to be delivered using a mushroom cup vacuum extractor. On 02/26/2020 a live male was delivered in vertex position at 08:13, wt of 3580 grams, 7 pounds and 14.3 ounces. APGARS were 9 & 9. The nose and mouth were suctioned with bulb suction, the cord was doubly clamped and cut and infant was transferred to the awaiting confidential secretary, Dr. Grayson. The placenta was removed intact and appeared normal with a three vessel cord. The uterus was exteriorized and the uterine cavity was cleaned using lap sponges. The hysterotomy was closed with a running locked suture of 0 Monocryl. A second suture of 0 Monocryl was used to imbricate the hysterotomy. The hysterotomy was hemostatic. The uterus, tubes and ovaries appeared overall normal. The uterus was then returned into the abdominal cavity. The hysterotomy was noted to remain hemostatic inside the abdominal cavity. The fascia was noted to be hemostatic and the fascia was then reapproximated with running sutures of 0 Monocryl. The subcutaneous fat was reapproximated using 0 Monocryl. The skin was reapproximated using 4-0 Monocryl and a Prineo dressing system was applied over the incision. Instrument, sponge, and needle counts were correct prior to the abdominal closure and at the conclusion of the case. Diagnosis: Stroke: No - Discharge Data Discharge Date: 02/28/20 Discharge Disposition: Home, Self-Care 01 Condition: Good - Referral to Home Health Primary Care Physician: Abiel Farfan MD - Discharge Diagnosis/Problem(s) (1) 39 weeks gestation of SNOMED Code(s): 06931507 ICD Code: Z3A.39 - 39 WEEKS GESTATION OF Status: Acute Current Visit: Yes (2) History of delivery, currently SNOMED Code(s): 850127663, 493082636 ICD Code: O34.219 - MATERNAL CARE FOR UNSP TYPE SCAR FROM PREVIOUS DEL Status: Acute Current Visit: Yes (3) History of section SNOMED Code(s): 645574413 ICD Code: Z98.891 - HISTORY OF UTERINE SCAR FROM PREVIOUS SURGERY Status: Acute Current Visit: Yes (4) Hepatitis C SNOMED Code(s): 13292336 ICD Code: B19.20 - UNSPECIFIED VIRAL HEPATITIS C WITHOUT HEPATIC COMA Status: Acute Current Visit: Yes (5) Gastroesophageal reflux during in third trimester, antepartum SNOMED Code(s): 987221699 ICD Code: O99.613 - DISEASES OF THE DGSTV SYS COMP , THIRD TRIMESTER; K21.9 - GASTRO-ESOPHAGEAL REFLUX DISEASE WITHOUT ESOPHAGITIS Status: Acute Current Visit: Yes (6) Obesity (BMI 30-39.9) SNOMED Code(s): 305902182, 100778460 ICD Code: E66.9 - OBESITY, UNSPECIFIED Status: Acute Current Visit: Yes (7) Advanced maternal age in multigravida SNOMED Code(s): 783351336 ICD Code: O09.529 - SUPERVISION OF ELDERLY MULTIGRAVIDA, UNSPECIFIED TRIMESTER Status: Acute Current Visit: Yes (8) Vacuum-assisted delivery, delivered, current hospitalization SNOMED Code(s): 258859855, 890689782 ICD Code: O82 - ENCOUNTER FOR DELIVERY WITHOUT INDICATION Status: Acute Current Visit: Yes - Patient Summary/Data Operative Procedure(s) Performed: Repeat section Complications: None Consults: None Hospital Course: Basilia Tony was admitted for repeat section after she was found to have positive rupture of membranes with positive AmniSure test. She was taken back to the OR and given spinal injection for anesthesia. She was given Ancef 3 g IV and azithromycin 500 mg IV for antibiotic prophylaxis. She was prepped and draped in the normal fashion. On 02/26/2020 she had a vacuum-assisted delivery of a live male infant at 08:13. Apgars of 9 and 9. Weight of 3580 g (7 pounds 14.3 ounces). She was closed in a normal fashion with Prineo dressing in place. There were no complications with the procedure. Please see the operative report for full details. Her post operative course was uneventful. Her pain was well controlled and she had minimal lochia. She was ambulating, tolerating a regular diet and voiding normally. She was passing flatus and has not had a bowel movement. She was breast and bottle feeding with some difficulty due to low milk production from the right breast. She was afebrile and her hematocrit was 29.7 on POD #1. She desired to be discharged home on the morning of POD #2. Her blood type is O+. Patient was seen by social work due to marijuana use in . - Patient Instructions Diet: Regular Diet as Tolerated Activity: Apply Ice, As Tolerated, No Lifting Over 20 Pounds Activity, Other: Nothing in the vagina for 6 weeks. Driving: Do Not Drive (While taking narcotic medications are having significant pain.) Showering/Bathing: May Shower Wound/Incision Care: Keep Operative Site/Wound Site Clean and Dry Notify Provider of: Fever, Increased Pain, Swelling and Redness, Drainage, Nausea and/or Vomiting Other/Special Instructions: Please contact your physician's office if you note any bleeding or pus coming from the abdominal incision. Please contact your physician's office if you have heavy vaginal bleeding enough to soak a pad in less than an hour for several hours. Monitor for any signs of an infection in the breasts with severe pain or redness of the breast. - Discharge Plan *PRESCRIPTION DRUG MONITORING PROGRAM REVIEWED*: Yes *COPY OF PRESCRIPTION DRUG MONITORING REPORT IN PATIENT BILL: No (No prescriptions in [place] PDMP system) Prescriptions/Med Rec: Docusate Sodium [Colace] 100 mg PO Q12H #60 cap Acetaminophen/oxyCODONE [Percocet 325-5 MG] 1 - 2 tab PO Q6H PRN #30 tablet PRN Reason: Pain Home Medications: Home Meds Acetaminophen/oxyCODONE [Percocet 325-5 MG] 1 - 2 tab PO Q6H PRN #30 tablet 02/28/20 [Rx] Docusate Sodium [Colace] 100 mg PO Q12H #60 cap 02/28/20 [Rx] Ibuprofen [Motrin] 600 mg PO Q6H PRN tablet 02/28/20 [Rx] Vit with Ca/FA/Iron [ Plus Iron] 1 each PO DAILY tablet 02/28/20 [Rx] Patient Handouts: Delivery, Care After, Marijuana Use During and Referrals: Abiel Farfan MD [Primary Care Provider] - (Follow-up in the clinic in 2 weeks for routine postoperative visit or earlier as needed. Recommend for patient to follow-up in the clinic on 03/07, 03/11 or 03/12/2020.) - Discharge Summary/Plan Comment DC Time >30 min.: No - Patient Data Vitals - Most Recent: Last Vital Signs Temp 36.6 C 02/28/20 07:32 Pulse 66 02/28/20 07:32 Resp 16 02/28/20 03:22 BP 140/88 02/28/20 07:32 Pulse Ox 98 02/28/20 07:32 Weight - Most Recent: 119.748 kg I&O - Last 24 hours: Intake & Output 02/27/20 02/28/20 02/28/20 22:59 06:59 14:59 Intake Total 240 Balance 240 Med Orders - Current: Current Medications Diphenhydramine HCl (Benadryl) 25 mg IVPUSH Q6H PRN PRN Reason: Itching or Nausea Docusate Sodium (Colace) 100 mg PO Q12H CELESTE Last Admin: 02/28/20 03:16 Dose: 100 mg Documented by: Ephedrine Sulfate (Ephedrine Sulfate) 5 mg IVPUSH SEECOMMENT PRN PRN Reason: Other Oxytocin/Lactated Ringer's (Pitocin In Lr 10 Units/1,000 Ml) 10 unit in 1,000 mls @ 100 mls/hr IV .CONTINUOUS CELESTE Ibuprofen (Motrin) 600 mg PO Q6H PRN PRN Reason: mild pain or fever Last Admin: 02/28/20 06:46 Dose: 600 mg Documented by: Magnesium Hydroxide (Milk Of Magnesia) 30 ml PO BEDTIME PRN PRN Reason: Constipation Naloxone HCl (Narcan) 0.1 mg IVPUSH SEECOMMENT PRN PRN Reason: Respiratory Depression Ondansetron HCl (Zofran) 4 mg IV Q8H PRN PRN Reason: Nausea/Vomiting Oxycodone/Acetaminophen (Percocet 325-5 Mg) 1 tab PO Q6H PRN PRN Reason: Pain (moderate 4-6) Oxycodone/Acetaminophen (Percocet 325-5 Mg) 2 tab PO Q6H PRN PRN Reason: Pain (severe 7-10) Last Admin: 02/28/20 07:43 Dose: 2 tab Documented by: Pantoprazole Sodium (Protonix) 40 mg PO 729 [facility] Last Admin: 02/28/20 07:43 Dose: 40 mg Documented by: Prenat Multivit/Ordering Box Operator/Iron/Folic Ac ( Plus Iron) 1 each PO DAILY [facility] Last Admin: 02/27/20 10:00 Dose: 1 each Documented by: Discontinued Medications Bupivacaine HCl (Marcaine 0.5%) Confirm Administered Dose 30 ml .ROUTE .STK-MED ONE Stop: 02/26/20 07:19 Last Admin: 02/26/20 08:06 Dose: 20 ml Documented by: Cefazolin Sodium (Ancef) Confirm Administered Dose 2 gm .ROUTE .STK-MED ONE Stop: 02/26/20 07:14 Citric Acid/Sodium Citrate (Bicitra Solution) 30 ml PO ONETIME ONE Stop: 02/26/20 02:04 Last Admin: 02/26/20 07:21 Dose: 30 ml Documented by: Dexamethasone (Dexamethasone) Confirm Administered Dose 4 mg .ROUTE .STK-MED ONE Stop: 02/26/20 08:29 Diphenhydramine HCl (Benadryl) 25 mg IVPUSH Q6H PRN PRN Reason: Pruritis Diphenhydramine HCl (Benadryl) 25 mg IVPUSH Q6H PRN PRN Reason: Pruritis Ephedrine Sulfate (Ephedrine 25 Mg/5 Ml Syringe) Confirm Administered Dose 25 mg IV .STK-MED ONE Stop: 02/26/20 08:52 Fentanyl (Sublimaze) 50 mcg IVPUSH Q5M PRN PRN Reason: Pain Fentanyl (Sublimaze) 50 mcg IVPUSH Q5M PRN PRN Reason: Pain Lactated Ringer's (Ringers, Lactated) 1,000 mls @ 125 mls/hr IV ASDIRECTED [facility] Last Admin: 02/26/20 03:01 Dose: 125 mls/hr Documented by: Cefazolin Sodium/Dextrose 2 gm (/ Premix) 50 mls @ 100 mls/hr IV ONETIME ONE Stop: 02/26/20 02:32 Last Admin: 02/26/20 13:47 Dose: Not Given Documented by: Oxytocin/Lactated Ringer's (Pitocin In Lr 10 Units/1,000 Ml) 10 unit in 1,000 mls @ 100 mls/hr IV ASDIRECTED [facility]; Protocol Azithromycin 500 mg/ Sodium (Chloride) 250 mls @ 250 mls/hr IV ONETIME ONE Stop: 02/26/20 07:30 Last Admin: 02/26/20 07:27 Dose: 250 mls/hr Documented by: Cefazolin Sodium/Dextrose 1 gm (/ Premix) 50 mls @ 100 mls/hr IV ONETIME ONE Stop: 02/26/20 07:28 Last Admin: 02/26/20 13:47 Dose: Not Given Documented by: Lactated Ringer's (Ringers, Lactated) Confirm Administered Dose 2,000 mls @ as directed .ROUTE .STK-MED ONE Stop: 02/26/20 07:14 Dextrose/Lactated Ringer's (Dextrose 5%-Lactated Ringers) 1,000 mls @ 125 mls/hr IV ASDIRECTED [facility] Stop: 02/26/20 18:22 Last Admin: 02/26/20 11:16 Dose: 125 mls/hr Documented by: Lactated Ringer's (Ringers, Lactated) 500 mls @ 500 mls/hr IV .BOLUS ONE Stop: 02/26/20 18:33 Last Admin: 02/26/20 17:48 Dose: 500 mls/hr Documented by: Ketorolac Tromethamine (Toradol) Confirm Administered Dose 30 mg .ROUTE .STK-MED ONE Stop: 02/26/20 07:14 Ketorolac Tromethamine (Toradol) 30 mg IVPUSH Q6H [facility] Stop: 02/27/20 03:01 Last Admin: 02/27/20 04:58 Dose: 30 mg Documented by: Metoclopramide HCl (Reglan) 10 mg IVPUSH ONETIME ONE Stop: 02/26/20 02:04 Last Admin: 02/26/20 07:22 Dose: 10 mg Documented by: Midazolam HCl (Versed 1 Mg/Ml) Confirm Administered Dose 2 mg .ROUTE .STK-MED ONE Stop: 02/26/20 08:19 Miscellaneous Medication (Phenylephrine 1 Mg/10 Ml-Ns) Confirm Administered Dose 1 mg IV .STK-MED ONE Stop: 02/26/20 08:52 Morphine Sulfate (Duramorph Pf) Confirm Administered Dose 1 mg .ROUTE .STK-MED ONE Stop: 02/26/20 07:14 Ondansetron HCl (Zofran) Confirm Administered Dose 4 mg .ROUTE .STK-MED ONE Stop: 02/26/20 07:14 Ondansetron HCl (Zofran) 4 mg IVPUSH ONETIME PRN PRN Reason: Nausea/Vomiting Ondansetron HCl (Zofran) 4 mg IVPUSH ONETIME PRN PRN Reason: Nausea/Vomiting Oxytocin (Pitocin) Confirm Administered Dose 20 unit .ROUTE .STK-MED ONE Stop: 02/26/20 07:14 Sodium Chloride (Saline Flush) 10 ml FLUSH ASDIRECTED PRN PRN Reason: Keep Vein Open
== END 2020-02-28 12:15 | disposition home or self-care (01) | DRG 787 ==
LOC: JD.OBCHECK 00:41 → JD.OB 02:16 → OBSVTOIN 08:13 → JD.OB 08:13
PROVIDERS: ADMIT Obstetrics & Gynecology; ATTEND Obstetrics & Gynecology
PROC: 10D00Z1 Extraction of Products of Conception, Low, Open Approach (ICD-10-PCS; principal; 2020-02-26)
DX: O34.211 Maternal care for low transverse scar from previous cesarean delivery (principal); O98.42 Viral hepatitis complicating childbirth; Z37.0 Single live birth; Z3A.39 39 weeks gestation of pregnancy; O99.62 Diseases of the digestive system complicating childbirth; K21.9 Gastro-esophageal reflux disease without esophagitis; O99.214 Obesity complicating childbirth; E66.9 Obesity, unspecified; B19.20 Unspecified viral hepatitis C without hepatic coma; Z11.59 Encounter for screening for other viral diseases
CPT/HCPCS: 01961; 36415; 59025; 80306; 84112; 85025; 86592; 86850; 86900; 86901; 94762; A9270-GY; G0480; J0171; J0456; J0690; J1100; J1885; J2250; J2274; J2370; J2405; J2590; J2765; J3490; J7050; J7120; J7121; U0002

== ENCOUNTER 2021-10-27 05:40 | Inpatient (IN) | payer OTHER, MEDICAID ==
[~2021-10-27 05:40] MED LIST: Sodium Chloride 0.9% 10 ML Syringe FLUSH PRN
[2021-10-27] MEDS ORDERED: ceFAZolin 2 GM in Sodium Chloride 0.9% 50 ML IV ONE (06:00)
[2021-10-27] MEDS ORDERED: Citric Acid/Sodium Citrate Solution 30 ML Cup ONE (06:12)
[2021-10-27] MEDS ORDERED: Metoclopramide 10 MG/2 ML SDV ONE (06:12)
[2021-10-27] MEDS: Lactated Ringers 1,000 ML IV SCH ×2 (06:27→07:02)
[2021-10-27] MEDS ORDERED: Lactated Ringers 1,000 ML ONE ×2 (06:50→07:05)
[2021-10-27] MEDS ORDERED: Citric Acid/Sodium Citrate Solution 30 ML Cup PO ONE (07:00)
[2021-10-27] MEDS ORDERED: Oxytocin/Lactated Ringers 10 UNIT/1,000 ML BAG IV SCH (07:00)
[2021-10-27] MEDS ORDERED: Metoclopramide 10 MG/2 ML SDV IVPUSH ONE (07:00)
[2021-10-27] MEDS ORDERED: Morphine PF 10 MG/10 ML SDV ONE (07:05)
[2021-10-27] MEDS ORDERED: ceFAZolin 1 GM Vial ONE ×2 (07:05→07:48)
[2021-10-27] MEDS ORDERED: Oxytocin 10 Units/1 ML SDV ONE ×2 (07:05→08:04)
[2021-10-27] MEDS ORDERED: Ondansetron 4 MG/2 ML SDV ONE (07:05)
[2021-10-27] MEDS ORDERED: Ketorolac 30 MG/ML SDV ONE (07:05)
[2021-10-27] MEDS ORDERED: ePHEDrine 50 MG/ML SDV ONE (07:56)
[2021-10-27] MEDS ORDERED: fentaNYL 100 MCG/2 ML SDV IVPUSH PRN (08:30)
[2021-10-27] MEDS ORDERED: Ondansetron 4 MG/2 ML SDV IVPUSH PRN (08:30)
[2021-10-27] MEDS ORDERED: Sodium Chloride 0.9% 10 ML Syringe FLUSH SCH (09:00)
[2021-10-27] MEDS ORDERED: Acetaminophen/oxyCODONE 325-5 MG Tab PO PRN (10:15)
[2021-10-27] MEDS ORDERED: Dextrose 5%-Lactated Ringers 1,000 ML IV SCH (10:15)
[2021-10-27] MEDS ORDERED: ePHEDrine 50 MG/ML SDV IVPUSH PRN (10:15)
[2021-10-27] MEDS ORDERED: Ondansetron 4 MG/2 ML SDV IV PRN (10:15)
[2021-10-27] MEDS ORDERED: Naloxone 0.4 MG/ML SDV IVPUSH PRN (10:15)
[2021-10-27] MEDS ORDERED: diphenhydrAMINE 50 MG/ML SDV IVPUSH PRN (10:15)
[2021-10-27] MEDS ORDERED: Ibuprofen 600 MG Tab PO PRN (10:15)
[2021-10-27] MEDS: Acetaminophen/oxyCODONE 325-5 MG Tab PO PRN ×2 (12:21→20:33)
[2021-10-27] MEDS: Ketorolac 30 MG/ML SDV IVPUSH SCH ×2 (14:50→21:19)
[2021-10-27] MEDS: diphenhydrAMINE 50 MG/ML SDV IVPUSH PRN (16:03)
[2021-10-27] MEDS ORDERED: Lactated Ringers 1,000 ML IV ONE (17:38)
[2021-10-28] MEDS: Acetaminophen/oxyCODONE 325-5 MG Tab PO PRN ×4 (04:16→23:16)
[2021-10-28] MEDS: Ketorolac 30 MG/ML SDV IVPUSH SCH (04:17)
[2021-10-28] MEDS: diphenhydrAMINE 50 MG/ML SDV IVPUSH PRN (07:36)
[2021-10-28] MEDS: Ibuprofen 600 MG Tab PO PRN (23:18)
[2021-10-28] MEDS: Docusate Sodium 100 MG Cap PO PRN (23:22)
[2021-10-29] MEDS: Acetaminophen/oxyCODONE 325-5 MG Tab PO PRN ×2 (03:49→09:53)
[2021-10-29] MEDS ORDERED: Measles, Mumps & Rubella Vaccine 0.5 ML SDV SUBCUT ONE (06:59)
[2021-10-29] MEDS: Ibuprofen 600 MG Tab PO PRN (08:22)
[2021-10-29] MEDS: Docusate Sodium 100 MG Cap PO PRN (08:29)
== END 2021-10-29 10:30 | disposition home or self-care (01) | DRG 787 ==
LOC: JD.OB 05:40
PROVIDERS: ADMIT Obstetrics & Gynecology; ATTEND Obstetrics & Gynecology
PROC: 10D00Z1 Extraction of Products of Conception, Low, Open Approach (ICD-10-PCS; principal; 2021-10-27)
DX: O34.211 Maternal care for low transverse scar from previous cesarean delivery (principal); O98.42 Viral hepatitis complicating childbirth; Z3A.39 39 weeks gestation of pregnancy; Z37.0 Single live birth; O99.214 Obesity complicating childbirth; E66.9 Obesity, unspecified; Z20.822 Contact with and (suspected) exposure to COVID-19; B18.2 Chronic viral hepatitis C
CPT/HCPCS: 01961; 36415; 59025; 82947; 85025; 85027; 86592; 86850; 86900; 86901; A9270-GY; J0690; J1200; J1885; J2274; J2405; J2590; J2765; J7120; J7121; U0002